=== PATIENT | male | born 1970 | race Caucasian/White ===

== ENCOUNTER 2017-01-07 17:03 | Emergency (ER) | payer OTHER ==
[2017-01-07] MEDS ORDERED: FLUORESCEIN NA 1 EA STRIP ONE (17:12)
[2017-01-07] MEDS ORDERED: TETRACAINE 0.5% OPHTH SOLN 2 ML BOTTLE ONE (17:12)
--- NOTE | 2017-01-07 17:31 | PDOC ---
History of Present Illness <Heidi Jackman - Last Filed: 01/07/17 17:50> - General History Source: Patient Exam Limitations: No Limitations - History of Present Illness Initial Comments: 01/07/17 18:00 Patient is a 46 year old male with no significant past medical history who presents to the ED with complaints of right eye pain beginning today. Patient reports being at work when he placed a detergent bottle on the table, the bottle fell on the floor causing something to pop into his right eye causing immediate pain. He reports the right eye pain to be a burning sensation and rates the pain to be an 8/10 in intensity. Patient reports washing his right eye with warm water for 10 mins after the initial accident. He states he is unable to open his right eye and feels like there is something in his eye. Patient states the detergent bottle broke upon impact with the floor. Denies headache, nausea. Seven fever, vomiting. Denies SOB, chest pain. Denies any other symptoms. Allergies: Eggs Social history: No smoking. No alcohol. No illicit drugs. Surgical history PMD: None <Casper Calhoun - Last Filed: 01/07/17 18:01> - General Chief Complaint: Eye Problem Stated Complaint: RIGHT EYE PAIN Time Seen by Provider: 01/07/17 17:30 Past History - Suicide/Smoking/Psychosocial Hx Smoking History: Never smoked Substance Use Type: None <Heidi Jackman - Last Filed: 01/07/17 17:50> <Casper Calhoun - Last Filed: 01/07/17 18:01> - Past Medical History Allergies/Adverse Reactions: Allergies Allergy/AdvReac Type Severity Reaction Status Date / Time egg Allergy Mild Rash Verified 01/07/17 17:07 Home Medications: Ambulatory Orders Ofloxacin 0.3% Ophth Soln [Ocuflox -] 1 drop AD Q4H #1 bottle 01/07/17 Review of Systems - Review of Systems Able to Perform ROS?: Yes Comments:: 01/07/17 18:00 GENERAL/CONSTITUTIONAL: No fever or chills. No weakness. HEAD, EYES, EARS, NOSE AND THROAT: +Right eye pain. No change in vision. No ear pain or discharge. No sore throat. CARDIOVASCULAR: No chest pain or shortness of breath. RESPIRATORY: No cough, wheezing, or hemoptysis. GASTROINTESTINAL: No nausea, vomiting, diarrhea or constipation. GENITOURINARY: No dysuria, frequency, or change in urination. MUSCULOSKELETAL: No joint or muscle swelling or pain. No neck or back pain. SKIN: No rash NEUROLOGIC: No headache, vertigo, loss of consciousness, or change in strength/ sensation. ENDOCRINE: No increased thirst. No abnormal weight change. HEMATOLOGIC/LYMPHATIC: No anemia, easy bleeding, or history of blood clots. ALLERGIC/IMMUNOLOGIC: No hives or skin allergy. All Other Systems: Reviewed and Negative <Casper Calhoun - Last Filed: 01/07/17 18:01> *Physical Exam - Vital Signs Last Vital Signs Temp Pulse Resp BP Pulse Ox 99.1 F 88 15 148/98 99 01/07/17 17:06 01/07/17 17:06 01/07/17 17:06 01/07/17 17:06 01/07/17 17:06 - Physical Exam Comments: 01/07/17 18:00 GENERAL: Awake, alert, and fully oriented, in no acute distress EYES: +Small amount of mucopurulent discharge. +Photophobia. Equally reactive to light. +20/25 in right eye. +20/15 in left eye. PERRLA, EOMI, sclera anicteric, conjunctiva clear <Casper Calhoun - Last Filed: 01/07/17 18:01> Medical Decision Making - Medical Decision Making 01/07/17 17:51 Pt presents to the ED complaining of R eye pain after hit in the eye with a detergent cap. patient is unclear whether detergent went into his eye. He attempted to irrigate his eyes at work without relief. Feels greatly improved after irrigation with liz lens. Visual acuity 20/25 in R eye and 20/15 in L. no consensual photophobia. + corneal abrasion on fluorescin exam. Likely corneal abrasion. Will discharge home. <Heidi Jackman - Last Filed: 01/07/17 17:50> *DC/Admit/Observation/Transfer <Heidi Jackman - Last Filed: 01/07/17 17:50> - Attestations Scribe Attestion: 01/07/17 18:01 Documentation prepared by Casper Calhoun, acting as director medical affairs for Heidi Jackman MD. <Casper Calhoun - Last Filed: 01/07/17 18:01> Diagnosis at time of Disposition: Corneal abrasion Qualifiers: Encounter type: initial encounter Laterality: right Qualified Code(s): S05.01XA - Injury of conjunctiva and corneal abrasion without foreign body, right eye, initial encounter - Discharge Dispostion Disposition: HOME Condition at time of disposition: Good - Prescriptions Prescriptions: Ofloxacin 0.3% Ophth Soln [Ocuflox -] 1 drop AD Q4H #1 bottle - Referrals Referrals: Sarina Horne MD [Staff Physician] - - Patient Instructions Printed Discharge Instructions: DI for Corneal Abrasion Additional Instructions: use the antibiotic drops for the next week. REturn to the ED for severe eye pain, fever, decreased vision or blurry vision. Follow up with the electronic operator if symptoms are not resolved within three days.
[2017-01-07 17:58] VITALS: BP 148/98; PULSE 88; TEMP 99.1; BMI 35.2
== END 2017-01-07 18:09 | disposition home or self-care (01) ==
LOC: FER 17:03
DX: S05.01XA Injury of conjunctiva and corneal abrasion without foreign body, right eye, initial encounter (principal); X58.XXXA Exposure to other specified factors, initial encounter; Y93.89 Activity, other specified; Y92.9 Unspecified place or not applicable; Y99.0 Civilian activity done for income or pay
CPT/HCPCS: 99282-25

== ENCOUNTER 2023-09-18 13:46 | Emergency (ER) | payer OTHER ==
[2023-09-18] MEDS ORDERED: ACETAMINOPHEN 325 MG TABLET (FP) ONE (14:03)
[2023-09-18] MEDS: ACETAMINOPHEN 325 MG TABLET (FP) PO ONE (14:08)
[2023-09-18 14:36] VITALS: BP 145/84; PULSE 87; RESP 16; TEMP 97.6; BMI 34.5
== END 2023-09-18 14:45 | disposition home or self-care (01) ==
LOC: FER 13:46
DX: T25.232A Burn of second degree of left toe(s) (nail), initial encounter (principal); M79.675 Pain in left toe(s); X12.XXXA Contact with other hot fluids, initial encounter
CPT/HCPCS: 99283-25